=== PATIENT | male | born 1965 | race Caucasian/White ===

== ENCOUNTER 2018-07-22 09:49 | Day surgery (SDC) | payer OTHER ==
[~2018-07-22 09:49] MED LIST: PROPOFOL 500 MG/50 ML EMU IV ONE
[2018-07-22 11:43] VITALS: PULSE 81
[2018-07-22 11:56] VITALS: BP 135/84; RESP 20; TEMP 976; O2SAT 96
== END 2018-07-22 12:14 | disposition home or self-care (01) | DRG 951 ==
LOC: SURG 09:49
PROVIDERS: ATTEND Surgery
DX: Z12.11 Encounter for screening for malignant neoplasm of colon (principal); Z80.0 Family history of malignant neoplasm of digestive organs; Z86.010 Personal history of colon polyps
CPT/HCPCS: J2704